=== PATIENT | female | born 1995 | race Caucasian/White ===

== ENCOUNTER 2022-11-25 16:04 | Emergency (ER) | payer SELFPAY | END 2022-11-25 17:48 | disposition home or self-care (01) | LOC: CSHERS 16:04 | DX: S50.862A Insect bite (nonvenomous) of left forearm, initial encounter (principal); W57.XXXA Bitten or stung by nonvenomous insect and other nonvenomous arthropods, initial encounter | CPT/HCPCS: 99282 ==